=== PATIENT | female | born 1975 | race Two or more races ===

== ENCOUNTER 2017-07-03 20:03 | Emergency (ER) | payer SELFPAY, OTHER ==
[2017-07-03 20:28] LABS: URINE HCG POC HCG NEGATIVE (Negative)
[2017-07-03 20:42] LABS: BILIRUBIN,URINE NEGATIVE (NEG); GLUCOSE,URINE NEGATIVE (NEG); NITRITE,URINE NEGATIVE (NEG); PH,URINE 6.5; PROTEIN,URINE >=300 mg/dL (NEG-TRACE)
[2017-07-03 20:46] LABS: CLARITY,URINE BLOODY; COLOR,URINE RED
[2017-07-03 20:47] LABS: BACTERIA,URINE 0 /HPF (0-FEW); RBC,URINE TNTC /HPF (0-2); SQUAMOUS EPITHELIAL CELL,UR MOD /LPF; WBC,URINE 20-40 /HPF (0-4)
== END 2017-07-03 21:20 | disposition home or self-care (01) ==
LOC: ER 20:03
DX: N30.01 Acute cystitis with hematuria (principal); Z87.442 Personal history of urinary calculi
CPT/HCPCS: 81001; 81025; 87086; 87186; 99284; 99285

== ENCOUNTER 2018-07-07 17:25 | Emergency (ER) | payer OTHER ==
[~2018-07-07] VITALS: Ht 167.6 cm; Wt 104.3 kg
[~2018-07-07 17:25] MED LIST: ACET325T9 PO; CIPR250T30 PO; CIPR500T94 PO; ONDA4TAB10 SL; PHEN-318 PO
[2018-07-07 17:29] VITALS: BP 162/95
--- NOTE | 2018-07-07 18:41 | PHYS DOC ---
Past Medical History Past Medical History: Kidney Stone, UTI Past Surgical History: No Surgical History Alcohol Use: None Drug Use: None Adult General Chief Complaint Chief Complaint: MECHANICAL FALL HPI HPI Patient is a 42 year old [f__sex] who presents with [] Review of Systems Review of Systems Constitutional: Denies fever or chills [] Eyes: Denies change in visual acuity, redness, or eye pain [] HENT: Denies nasal congestion or sore throat [] Respiratory: Denies cough or shortness of breath [] Cardiovascular: No additional information not addressed in HPI [] GI: Denies abdominal pain, nausea, vomiting, bloody stools or diarrhea [] : Denies dysuria or hematuria [] Musculoskeletal: Denies back pain or joint pain [] Integument: Denies rash or skin lesions [] Neurologic: Denies headache, focal weakness or sensory changes [] Endocrine: Denies polyuria or polydipsia [] All other systems were reviewed and found to be within normal limits, except as documented in this note. Allergies Allergies Allergies Coded Allergies Type Severity Reaction Last Updated Verified No Known Drug Allergies 11/20/13 No Physical Exam Physical Exam Constitutional: Well developed, well nourished, no acute distress, non-toxic appearance. [] HENT: Normocephalic, atraumatic, bilateral external ears normal, oropharynx moist, no oral exudates, nose normal. [] Eyes: PERRLA, EOMI, conjunctiva normal, no discharge. [] Neck: Normal range of motion, no tenderness, supple, no stridor. [] Cardiovascular:Heart rate regular rhythm, no murmur [] Lungs & Thorax: Bilateral breath sounds clear to auscultation [] Abdomen: Bowel sounds normal, soft, no tenderness, no masses, no pulsatile masses. [] Skin: Warm, dry, no erythema, no rash. [] Back: No tenderness, no CVA tenderness. [] Extremities: No tenderness, no cyanosis, no clubbing, ROM intact, no edema. [] Neurologic: Alert and oriented X 3, normal motor function, normal sensory function, no focal deficits noted. [] Psychologic: Affect normal, judgement normal, mood normal. [] Current Patient Data Vital Signs Vital Signs Date Time Temp Pulse Resp B/P (MAP) Pulse Ox O2 Delivery O2 Flow Rate FiO2 07/07/18 17:29 97.7 81 16 162/95 (117) 98 Room Air 97.7 EKG EKG [] Radiology/Procedures Radiology/Procedures [] Course & Med Decision Making Course & Med Decision Making Pertinent Labs and Imaging studies reviewed. (See chart for details) [] Dragon Disclaimer Dragon Disclaimer This electronic medical record was generated, in whole or in part, using a voice recognition dictation system. Departure Departure Impression: Primary Impression: Multiple contusions Disposition: HOME, SELF-CARE Condition: STABLE Referrals: NO PCP (PCP) Patient Instructions: Contusions-SportsMed, RICE - Routine Care for Injuries Additional Instructions: You may take ibuprofen or Tylenol for pain. Use ice packs or heating pads for comfort. Follow-up with your primary care physician in 3 days if not improving or return to the emergency department if worsening. FAUSTINO MELO APRN Jul 07, 2018 18:41
--- NOTE | 2018-07-07 18:58 | RAD ---
2 the shoulder HISTORY: Pain after fall AP and Y views of the left shoulder obtained COMPARISON the visualized osseous structures appear grossly intact. There is minimal marginal degenerative spurring of the AC joint. The glenohumeral relationship is normal. IMPRESSION: No acute findings. Electronically signed by: Tanner Flores III, MD (07/07/2018 6:53 PM) [email or web address]
== END 2018-07-07 19:00 | disposition home or self-care (01) ==
LOC: ER 17:25
DX: S40.012A Contusion of left shoulder, initial encounter (principal); S60.221A Contusion of right hand, initial encounter; S60.222A Contusion of left hand, initial encounter; W01.0XXA Fall on same level from slipping, tripping and stumbling without subsequent striking against object, initial encounter; Y93.89 Activity, other specified; Y92.89 Other specified places as the place of occurrence of the external cause; Y99.8 Other external cause status
CPT/HCPCS: 73030; 99284